=== PATIENT | male | born 1975 | race Caucasian/White ===

== ENCOUNTER 2017-08-28 15:58 | Emergency (ER) | payer BC ==
[2017-08-28] MEDS ORDERED: MORPHINE SULFATE 10 MG/ML INJ IV ONE (16:19)
--- NOTE | 2017-08-28 16:21 | ER Document Report ---
ED Medical Screen (RME) - General Chief Complaint: Foreign Body Stated Complaint: FOREIGN OBJECT IN THROAT Time Seen by Provider: 08/28/17 16:10 Notes: RAPID MEDICAL EVALUATION DISCLOSURE I have seen this patient as part of a Rapid Medical Evaluation and, if applicable, placed any initially appropriate orders. The patient will be seen and fully evaluated, including a full history and physical exam, by a provider ( in Main ED or Fast Track) when a room becomes available. 42-year-old male here with complaints of food stuck in his throat. He states he was eating venison tacos approximately 6 hours ago and since then has been unable to swallow anything including his saliva. He has a history of the same swallowing difficulty and occurs usually once per month but he can usually resolve the symptoms at home without having to come to the ER. He is tried drinking water and Coca[employer] however is having to spit it back up. EXAM CTAB RRR TRAVEL OUTSIDE OF THE [place] IN LAST 30 DAYS: No - Related Data Allergies/Adverse Reactions: naproxen [From Naprosyn] Allergy (Verified 08/28/17 16:02) Past Medical History - Social History Chew tobacco use (# tins/day): Yes - 1 Frequency of alcohol use: Occasional Drug Abuse: None Renal/ Medical History: Denies: Hx Peritoneal Dialysis Physical Exam - Vital signs Vitals: Temp Pulse Resp BP Pulse Ox 98.3 F 105 H 18 144/95 H 98 08/28/17 16:06 08/28/17 16:06 08/28/17 16:06 08/28/17 16:06 08/28/17 16:06 Course - Vital Signs Vital signs: Temp Pulse Resp BP Pulse Ox 98.3 F 105 H 18 144/95 H 98 08/28/17 16:06 08/28/17 16:06 08/28/17 16:06 08/28/17 16:06 08/28/17 16:06
[2017-08-28] MEDS ORDERED: GLUCAGON,HUMAN RECOMB 1 MG INJ IV ONE (16:30)
[2017-08-28 16:52] LABS: ABSOLUTE EOSINOPHILS # (AUTO) 0.3 10^3/uL (0.0-0.6); ABSOLUTE LYMPHOCYTES (AUTO) 1.6 10^3/uL (0.5-4.7); ABSOLUTE MONOCYTES (AUTO) 0.9 10^3/uL (0.1-1.4); ABSOLUTE NEUT (AUTO) 8.4 10^3/uL (1.7-8.2); BASOPHILS % (AUTO) 0.3 % (0-2); EOSINOPHILS % (AUTO) 2.6 % (0-6); HEMATOCRIT 46.7 % (37.9-51.0); HEMOGLOBIN 16.2 g/dL (13.5-17.0); LYMPHOCYTES % (AUTO) 14.5 % (13-45); MEAN CORPUSCULAR HEMOGLOBIN 31.4 pg (27.0-33.4); MEAN CORPUSCULAR HGB CONC 34.7 g/dL (32.0-36.0); MEAN CORPUSCULAR VOLUME 91 fl (80-97); MONOCYTES % (AUTO) 8.1 % (3-13); PLATELET COUNT 336 10^3/uL (150-450); RED BLOOD COUNT 5.16 10^6/uL (4.35-5.55); RED CELL DISTRIBUTION WIDTH 12.7 % (11.5-14.0); SEGMENTED NEUTROPHILS % (AUTO) 74.5 % (42-78); TOTAL CELLS COUNTED % (AUTO) 100 %; WHITE BLOOD COUNT 11.3 10^3/uL (4.0-10.5)
[2017-08-28 17:07] LABS: ANION GAP 17 (5-19); BLOOD UREA NITROGEN 20 mg/dL (7-20); CALCIUM 10.4 mg/dL (8.4-10.2); CARBON DIOXIDE 30 mmol/L (22-30); CHLORIDE 99 mmol/L (98-107); GLUCOSE 120 mg/dL (75-110); POTASSIUM 3.6 mmol/L (3.6-5.0); SODIUM 145.7 mmol/L (137-145)
--- NOTE | 2017-08-28 17:08 | RADIOLOGY REPORT (SQ) ---
EXAM DESCRIPTION: CHEST 2 VIEWS COMPLETED DATE/TIME: 08/28/2017 4:48 pm REASON FOR STUDY: esophageal foreign body COMPARISON: None. EXAM PARAMETERS: NUMBER OF VIEWS: two views TECHNIQUE: Digital Frontal and Lateral radiographic views of the chest acquired. RADIATION DOSE: NA LIMITATIONS: Numerous wires overlie the right chest. FINDINGS: LUNGS AND PLEURA: No opacities, masses or pneumothorax. No pleural effusion. MEDIASTINUM AND HILAR STRUCTURES: No masses or contour abnormalities. HEART AND VASCULAR STRUCTURES: Heart normal size. No evidence for failure. BONES: No acute findings. HARDWARE: None in the chest. OTHER: No opaque or metallic foreign bodies identified in the region esophagus or stomach. IMPRESSION: NO ACUTE RADIOGRAPHIC FINDING IN THE CHEST. TECHNICAL DOCUMENTATION: JOB ID: [id number] [employer]- All Rights Reserved Reading location - IP/workstation name: [email or web address]
[2017-08-28] MEDS ORDERED: RINGERS SOLUTION,LACTATED 1,000 ML IV ONE (17:12)
--- NOTE | 2017-08-28 17:13 | RADIOLOGY REPORT (SQ) ---
EXAM DESCRIPTION: SOFT TISSUE NECK COMPLETED DATE/TIME: 08/28/2017 4:48 pm REASON FOR STUDY: esophageal foreign body COMPARISON: None. NUMBER OF VIEWS: Two views. TECHNIQUE: AP and lateral radiographic image of the soft tissues of the neck. LIMITATIONS: None. FINDINGS: EPIGLOTTIS: Normal. Contour normal. Aryepiglottic folds normal. PREVERTEBRAL SOFT TISSUES: Normal. No soft tissue swelling. SUBGLOTTIC AREA: Normal. No narrowing. RETROPHARYNGEAL SPACE: Normal. No soft tissue masses. BONES: Mild disc space loss of height at C5-6 LUNG APICES: Normal. OTHER: No radiopaque foreign body. No other significant finding. IMPRESSION: NEGATIVE STUDY OF THE SOFT TISSUES OF THE NECK. TECHNICAL DOCUMENTATION: JOB ID: [id number] [employer]- All Rights Reserved Reading location - IP/workstation name: [email or web address]
--- NOTE | 2017-08-28 17:23 | ER Document Report ---
ED General - General Chief Complaint: Foreign Body Stated Complaint: FOREIGN OBJECT IN THROAT Time Seen by Provider: 08/28/17 16:10 Information source: Patient TRAVEL OUTSIDE OF THE [place] IN LAST 30 DAYS: No - HPI Patient complains to provider of: food caught in throat Onset: Other - 6 hours ago Onset/Duration: Sudden Quality of pain: Fullness Severity: Moderate Associated symptoms: Other - inability to tolerate saliva or other fluuids Relieved by: Denies Similar symptoms previously: Yes - usually "gets it to go down" Recently seen / treated by doctor: No Notes: pt. eating venison tacos approx. 6 hours ago and has food in throat. No SOB - Related Data Allergies/Adverse Reactions: naproxen [From Naprosyn] Allergy (Verified 08/28/17 16:02) Past Medical History - General Information source: Patient - Social History Smoking Status: Never Smoker Chew tobacco use (# tins/day): Yes - 1 Frequency of alcohol use: Occasional Drug Abuse: None Lives with: Family Family History: Reviewed & Not Pertinent Patient has suicidal ideation: No Patient has homicidal ideation: No - Past Medical History Cardiac Medical History: Reports: None Pulmonary Medical History: Reports: None EENT Medical History: Reports: None Neurological Medical History: Reports: None Endocrine Medical History: Reports: None Renal/ Medical History: Reports: None. Denies: Hx Peritoneal Dialysis Malignancy Medical History: Reports None GI Medical History: Reports: None Musculoskeltal Medical History: Reports None Skin Medical History: Reports None Psychiatric Medical History: Reports: None Traumatic Medical History: Reports: None Past Surgical History: Reports: None Review of Systems - Review of Systems Constitutional: No symptoms reported EENT: No symptoms reported Cardiovascular: No symptoms reported Respiratory: No symptoms reported Gastrointestinal: See HPI Musculoskeletal: No symptoms reported Skin: No symptoms reported Hematologic/Lymphatic: No symptoms reported Neurological/Psychological: No symptoms reported Physical Exam - Vital signs Vitals: Temp Pulse Resp BP Pulse Ox 98.3 F 105 H 18 144/95 H 98 08/28/17 16:06 08/28/17 16:06 08/28/17 16:06 08/28/17 16:06 08/28/17 16:06 Interpretation: Normal - Notes Notes: PHYSICAL EXAMINATION: GENERAL: Well-appearing, well-nourished. Patient appears uncomfortable in no acute distress. Is spitting saliva into cup at bedside HEAD: Atraumatic, normocephalic. EYES: Pupils equal round and reactive to light, extraocular movements intact, sclera anicteric, conjunctiva are normal. ENT: Nares patent, oropharynx clear without exudates. Moist mucous membranes. NECK: Normal range of motion, supple without lymphadenopathy LUNGS: Breath sounds clear to auscultation bilaterally and equal. No wheezes rales or rhonchi. HEART: Regular rate and rhythm without murmurs ABDOMEN: Soft, nontender, nondistended abdomen. No guarding, no rebound. No masses appreciated. Musculoskeletal: Normal range of motion, no pitting or edema. No cyanosis. NEUROLOGICAL: Cranial nerves grossly intact. Normal speech, normal gait. Normal sensory, motor exams PSYCH: Normal mood, normal affect. SKIN: Warm, Dry, normal turgor, no rashes or lesions noted. Course - Re-evaluation Re-evalutation: 08/28/17 17:23 Chest X-Ray 08/28/17 16:16 IMPRESSION: NO ACUTE RADIOGRAPHIC FINDING IN THE CHEST. Soft Tissue Neck X-Ray 08/28/17 16:16 IMPRESSION: NEGATIVE STUDY OF THE SOFT TISSUES OF THE NECK. 08/28/17 17:[address] Mcdonough who is going to call in the endoscopy team. Patient is aware. He is receiving glucagon IV fluids and morphine as ordered. 08/28/17 19:35 Dr. Mcdonough was able to get the food bolus to go down into the patient's GI tract. He did state that the patient had multiple esophageal strictures as well as esophagitis.He stated to start the patient on H2 mahendra as well as follow-up with GI. - Vital Signs Vital signs: Temp Pulse Resp BP Pulse Ox 98.3 F 105 H 15 138/85 H 97 08/28/17 16:06 08/28/17 18:20 08/28/17 19:01 08/28/17 19:01 08/28/17 19:01 - Laboratory Result Diagrams: 08/28/17 16:24 08/28/17 16:24 Laboratory results interpreted by me: 08/28/17 08/28/17 16:24 16:24 WBC 11.3 H Absolute Neutrophils 8.4 H Sodium 145.7 H Glucose 120 H Calcium 10.4 H - Diagnostic Test Radiology reviewed: Image reviewed, Reports reviewed Discharge - Discharge Clinical Impression: Foreign body in esophagus, Esophagitis determined by endoscopy, Esophageal stricture Condition: Stable Disposition: HOME, SELF-CARE Instructions: Esophagitis ([facility]), Prilosec (Acid Pump Inhibitor) ([facility]) Additional Instructions: Please refrain from alcohol, tobacco products,And take medication as prescribed. Please call your military science instructor Dr. Chapman tomorrow for appointment in the next few days. Return to the emergency department if you have any concerns. Prescriptions: Omeprazole 20 mg PO DAILY 30 Days #30 capsule.dr Referrals: GERMAN FLYNN MD [ACTIVE STAFF] - Follow up as needed
[2017-08-28] MEDS ORDERED: DIPHENHYDRAMINE HCL 50 MG/ML VIAL ONE (18:02)
[2017-08-28] MEDS ORDERED: ONDANSETRON HCL INJ/PF 4 MG/2 ML SDV ONE (18:02)
[2017-08-28] MEDS ORDERED: NALOXONE HCL INJ/PF 0.4 MG/1 ML SDV ONE (18:02)
[2017-08-28] MEDS ORDERED: EPINEPHRINE INJ 1 MG/10 ML DISP.SYRIN ONE (18:03)
[2017-08-28] MEDS ORDERED: FENTANYL CITRATE INJ/PF 100 MCG/2 ML AMPUL ONE (18:03)
[2017-08-28] MEDS ORDERED: FLUMAZENIL INJ 0.5 MG/5 ML VIAL ONE (18:03)
[2017-08-28] MEDS ORDERED: GLUCAGON,HUMAN RECOMB 1 MG INJ ONE (18:03)
[2017-08-28] MEDS: MIDAZOLAM 2 MG/2 ML INJ ONE ×4 (18:22→18:32)
--- NOTE | 2017-08-28 20:00 | Operative Report ---
Operative Report DATE OF SURGERY: 08/28/17 PREOPERATIVE DIAGNOSIS: 1. Retained food bolus midesophagus. 2. GERD POSTOPERATIVE DIAGNOSIS: Same with concentric esophageal rings with acute esophagitis OPERATION: 1. Esophagogastroduodenoscopy. 2. mechanical dislodgment of retained food bolus midesophagus. 3. Biopsy of mid esophageal concentric ring SURGEON: MINISTERIO HERNANDEZ ANESTHESIA: Moderate Sedation TISSUE REMOVED OR ALTERED: Biopsy mid esophageal ring COMPLICATIONS: None ESTIMATED BLOOD LOSS: None INTRAOPERATIVE FINDINGS: See below PROCEDURE: The patient was evaluated in the emergency department where he was clinically found to have evidence of near complete esophageal obstruction based on the inability to clear his oral secretions. He was set up for upper endoscopy and removal of foreign body in the emergency department. The mechanics of the operation as well as a thorough explanation of the risks benefits and alternatives including esophageal perforation were discussed with the patient. He expresses understanding and agreed to proceed. Monitoring devices were attached patient placed in the semirecumbent position right side up left side down oral mouthpiece inserted an appropriate level of conscious sedation induced uneventfully. Surgical plan surgical timeout conducted. The pediatric gastroscope was used to cannulate the oropharynx uneventfully. The hypopharynx was significant for mild inflammation of the peritonsillar and supraglottic area. There was no evidence of ulceration. The scope was advanced past the upper esophageal sphincter to approximately 20 cm from the incisor at which point the fluid bolus was identified. Using a combination of irrigation, and rothnet manipulation, the food bolus was broken up and dislodged down the esophagus. Once the food bolus was cleared, appreciation of the esophagus revealed multiple concentric narrow rings consistent with possible chronic reflux disease , possible eosinophilic esophagitis. A biopsy of 1 of the mid esophageal rings was performed with cold forceps device. Bleeding was minimal. Despite multiple attempts, I was unable to advance the esophagoscope through the midesophagus primarily because of the patient's intolerance to the endoscopy at this point. I felt that the obstruction was relieved and omission of been accomplished. The scope was withdrawn. Patient tolerated procedure well. He was given clear liquids and tolerated this well. Impression: complicated gastroesophageal reflux disease with multiple mid esophageal rings with stricture causing esophageal obstruction, now relieved Recommendations: 1. I spoke to the patient, patient's , and primary care in the emergency department about referring the patient for full gastroenterologic workup. 2. Suggested patient refrain from eating meats chicken etc. I recommended H2 mahendra therapy, head of bed elevation etc. 3. A copy of the endoscopic photographs provided to patient and .
[2017-08-28 20:06] VITALS: BP 137/104
== END 2017-08-28 20:07 | disposition home or self-care (01) ==
LOC: ER 15:58
DX: T18.128A Food in esophagus causing other injury, initial encounter (principal); X58.XXXA Exposure to other specified factors, initial encounter; K21.0 Gastro-esophageal reflux disease with esophagitis; K22.2 Esophageal obstruction; Z72.0 Tobacco use
CPT/HCPCS: 99284; 96361; 96374; 96375; 43202; 43215; 36415; 85025; 80048; 88305 ×2; 88312 ×2; 71046; 70360; J2250; J3010; J2270; J7120; 43235; 43239; 43247; J0171; J1200; J1610; J2310; J2405; J3490

== ENCOUNTER 2019-02-05 06:04 | Emergency (ER) | payer BC ==
[2019-02-05] MEDS ORDERED: NORMAL SALINE 1000 ML 1,000 ML IV ONE (06:39)
[2019-02-05] MEDS ORDERED: DIPHENHYDRAMINE HCL 50 MG/ML VIAL IV ONE (06:39)
[2019-02-05] MEDS ORDERED: METOCLOPRAMIDE HCL INJ/PF 10 MG/2 ML SDV IV ONE (06:39)
--- NOTE | 2019-02-05 06:44 | ER Document Report ---
ED General - General Chief Complaint: Headache Stated Complaint: REPORTS HIGH BLOOD PRESSURE Time Seen by Provider: 02/05/19 06:27 TRAVEL OUTSIDE OF THE [place] IN LAST 30 DAYS: No - HPI Notes: Patient is a 43 yo male that presents to the emergency department for chief complaint of headache. Patient states around 9:45 PM on 02/03/2019 he was abruptly woke from sleep with a severe headache. He describes it as a throbbing sensation across his entire head. The headache was maximum severity when he woke up. He states initially he had some blurry vision but that has since resolved. 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 Patient reports history of migraine headaches in the past stating he gets them about once every other month. Patient states he has not had a headache that was this severe in pain in the past. He reports mild nausea without vomiting. He denies any numbness, weakness, fevers, neck pain or stiffness. Patient states he was unable to go back to sleep on the night of the and remained awake until late last night when he barely got sleep. He states he took Tylenol PM last night which gave him minimal relief. He does state his headache today is slightly improved from yesterday. Patient states he has a history of hypertension as well and usually has a blood pressure that runs around 160/110. He states that his blood pressures have been running high since the headache began. Past Medical History: Hypertension Past Surgical History: Negative Social History: Reviewed in chart Family History: Reviewed and noncontributory for presenting illness Allergies: Reviewed, see documented allergy list. REVIEW OF SYSTEMS: CONSTITUTIONAL : No fever No chills No diaphoresis No recent illness EENT: vision changes No congestion No sore throat CARDIOVASCULAR: No chest pain No palpitations RESPIRATORY: No shortness of breath No cough No difficulty breathing GASTROINTESTINAL: No abdominal pain nausea No vomiting No diarrhea GENITOURINARY: No dysuria No hematuria No difficulty urinating MUSCULOSKELETAL: No back pain No leg pain No arm pain SKIN: No rashes No lesions LYMPHATIC: No swollen, enlarged glands. NEUROLOGICAL: No lightheadedness headache No weakness No paresthesias PSYCHIATRIC: No anxiety No depression PHYSICAL EXAMINATION: Vital signs reviewed, nursing noted reviewed. GENERAL: Appears to be in pain, well-nourished and in no acute distress. HEAD: Atraumatic, normocephalic. EYES: Eyes appear normal, extraocular movements intact, sclera anicteric, conjunctiva are normal. ENT: nares patent, oropharynx clear without exudates. Moist mucous membranes. NECK: Normal range of motion, supple without lymphadenopathy LUNGS: Breath sounds clear to auscultation bilaterally and equal. No wheezes rales or rhonchi. HEART: Regular rate and rhythm without murmurs ABDOMEN: Soft, nontender, normoactive bowel sounds. No rebound, guarding, or rigidity. No masses appreciated. EXTREMITIES: Nontender, good range of motion, no pitting or edema. NEUROLOGICAL: Alert, GCS 15, no focal neurological deficits. Moves all extremities spontaneously Motor and sensory grossly intact on exam. PSYCH: Normal mood, normal affect. SKIN: Warm, Dry, normal turgor, no rashes or lesions noted on exposed skin - Related Data Allergies/Adverse Reactions: naproxen [From Naprosyn] Allergy (Verified 02/05/19 06:13) Past Medical History - Social History Smoking Status: Never Smoker Chew tobacco use (# tins/day): Yes - 1-1.5 Frequency of alcohol use: Occasional Drug Abuse: None Family History: Reviewed & Not Pertinent Patient has suicidal ideation: No Patient has homicidal ideation: No - Past Medical History Cardiac Medical History: Reports: Hx Hypertension Neurological Medical History: Denies: Hx Seizures Renal/ Medical History: Denies: Hx Peritoneal Dialysis Past Surgical History: Reports: Hx Orthopedic Surgery - LEFT KNEE Physical Exam - Vital signs Vitals: Temp Pulse Resp BP Pulse Ox 98 F 104 H 18 140/101 H 97 02/05/19 06:13 02/05/19 06:13 02/05/19 06:13 02/05/19 06:13 02/05/19 06:13 Course - Re-evaluation Re-evalutation: 02/05/19 06:51 Vitals reviewed. Nursing notes reviewed. Patient is hypertensive at presentation but running around where he reports his baseline is despite taking home medications. He does have an appointment with his primary care doctor to discuss changes to his blood pressure medications in the coming week. Patient reports history of migraine headaches that have felt similar but not as severe in pain. Will be given IV fluids, Reglan and Benadryl for symptomatic management. Since this is the most severe headache he has ever had and because the onset was abrupt CT brain will be ordered to evaluate for mass lesion, int racranial hemorrhage or other acute process. 02/05/19 08:20 Patient reevaluated and had complete resolution of his headache after fluids, Reglan and Benadryl. He states he feels tired from the Benadryl but otherwise he is asymptomatic. He has a negative CT scan of his brain. Blood work shows no endorgan damage including renal failure. At this point I have no clinical suspicion for subarachnoid hemorrhage. Patient is able to stand and ambulate without difficulty. He was counseled on return precautions. He will follow with his PCP regarding his hypertension and blood pressure medications. Laboratory 02/05/19 02/05/19 07:00 07:00 WBC 6.7 RBC 5.06 Hgb 16.3 Hct 47.3 MCV 94 MCH 32.3 MCHC 34.5 RDW 12.8 Plt Count 256 Lymph % (Auto) 15.6 [place] % (Auto) 8.5 Eos % (Auto) 5.7 Baso % (Auto) 0.7 Absolute Neuts (auto) 4.7 Absolute Lymphs (auto) 1.0 Absolute Monos (auto) 0.6 Absolute Eos (auto) 0.4 Absolute Basos (auto) 0.0 Seg Neutrophils % 69.5 Sodium 137.1 Potassium 3.9 Chloride 101 Carbon Dioxide 27 Anion Gap 9 BUN 22 H Creatinine 1.15 Est GFR ( Amer) > 60 Est GFR (MDRD) Non-Af > 60 Glucose [address] 02/05/19 06:38 IMPRESSION: No acute intracranial abnormality. He is stable at discharge. - Vital Signs Vital signs: Temp Pulse Resp BP Pulse Ox 98 F 104 H 18 140/101 H 97 02/05/19 06:13 02/05/19 06:13 02/05/19 06:13 02/05/19 06:13 02/05/19 06:13 - Laboratory Result Diagrams: 02/05/19 07:00 02/05/19 07:00 Laboratory results interpreted by me: 02/05/19 07:00 BUN 22 H Discharge - Discharge Clinical Impression: Headache Qualifiers: Headache type: unspecified Headache chronicity pattern: acute headache Intractability: not intractable Qualified Code(s): R51 - Headache Hypertension Qualifiers: Hypertension type: essential hypertension Qualified Code(s): I10 - Essential (primary) hypertension Condition: Stable Disposition: HOME, SELF-CARE Instructions: Migraine Headache ([facility]) Additional Instructions: Please return to the emergency department if you have any worsening, or concern of your symptoms. Please return to the emergency department if you develop chest pain, difficulty breathing, severe abdominal pain, or ongoing vomiting. Please follow-up with your primary care physician in 2-3 days and any other recommended physicians. If prescribed, take all medications as directed. If you have any questions or concerns do not hesitate to return the emergency department for evaluation.\ Your blood pressure was elevated in the emergency room today. You need to be t aking all your medications as prescribed and following closely with your primary care doctor for reevaluation of your blood pressure. Referrals: ABDIEL RUST PA [Primary Care Provider] - 02/07/19
[2019-02-05 07:30] LABS: ABSOLUTE EOSINOPHILS # (AUTO) 0.4 10^3/uL (0.0-0.6); ABSOLUTE MONOCYTES (AUTO) 0.6 10^3/uL (0.1-1.4); ABSOLUTE NEUT (AUTO) 4.7 10^3/uL (1.7-8.2); BASOPHILS % (AUTO) 0.7 % (0-2); EOSINOPHILS % (AUTO) 5.7 % (0-6); HEMATOCRIT 47.3 % (37.9-51.0); HEMOGLOBIN 16.3 g/dL (13.5-17.0); LYMPHOCYTES % (AUTO) 15.6 % (13-45); MEAN CORPUSCULAR HEMOGLOBIN 32.3 pg (27.0-33.4); MEAN CORPUSCULAR HGB CONC 34.5 g/dL (32.0-36.0); MEAN CORPUSCULAR VOLUME 94 fl (80-97); MONOCYTES % (AUTO) 8.5 % (3-13); PLATELET COUNT 256 10^3/uL (150-450); RED BLOOD COUNT 5.06 10^6/uL (4.35-5.55); RED CELL DISTRIBUTION WIDTH 12.8 % (11.5-14.0); SEGMENTED NEUTROPHILS % (AUTO) 69.5 % (42-78); TOTAL CELLS COUNTED % (AUTO) 100 %; WHITE BLOOD COUNT 6.7 10^3/uL (4.0-10.5)
[2019-02-05 07:33] LABS: ANION GAP 9 (5-19); BLOOD UREA NITROGEN 22 mg/dL (7-20); CALCIUM 9.7 mg/dL (8.4-10.2); CARBON DIOXIDE 27 mmol/L (22-30); CHLORIDE 101 mmol/L (98-107); GLUCOSE 103 mg/dL (75-110); POTASSIUM 3.9 mmol/L (3.6-5.0)
--- NOTE | 2019-02-05 07:43 | RADIOLOGY REPORT (SQ) ---
CT head without contrast on 02/05/2019 at 7:03 AM CLINICAL INDICATION: Headache TECHNIQUE: Multiple axial images are obtained throughout the head without the administration of contrast. This exam was performed according to our departmental dose-optimization program, which includes automated exposure control, adjustment of the mA and/or kV according to patient size and/or use of iterative reconstruction technique. Total DLP is 1096.98 mGy*cm. COMPARISON: None FINDINGS: There is no hydrocephalus. There is no CT evidence of acute infarct. There is no hemorrhage. There are no abnormal extra-axial fluid collections. There is no mass, mass effect or midline shift. No bony abnormality is noted. IMPRESSION: No acute intracranial abnormality.
[2019-02-05 08:41] VITALS: BP 133/77
== END 2019-02-05 08:40 | disposition home or self-care (01) ==
LOC: ER 06:04
DX: R51 Headache (principal); I10 Essential (primary) hypertension; H53.8 Other visual disturbances; R11.0 Nausea
CPT/HCPCS: 36415; 85025; 80048; 70450; J1200; J2765; J7030; 96361; 96374; 96375; 99284